=== PATIENT | male | born 1950 | race Caucasian/White ===

== ENCOUNTER 2018-05-30 19:21 | Emergency (ER) | payer OTHER ==
[~2018-05-30] VITALS: Ht 162.6 cm; Wt 62.1 kg
[2018-05-30 19:25] VITALS: BP_SYST 118
[2018-05-30] MEDS ORDERED: TRANEXAMIC ACID 1,000 MG/10 ML VIAL IV ONE ×2 (20:00→20:15)
[2018-05-30] MEDS ORDERED: LIDOCAINE/EPI 1% 1:100000 20 ML VIAL INJ ONE (20:00)
[2018-05-30 21:54] VITALS: BP_SYST 118
== END 2018-05-30 21:54 | disposition home or self-care (01) ==
LOC: SED 19:21
DX: K91.840 Postprocedural hemorrhage of a digestive system organ or structure following a digestive system procedure (principal); Z98.818 Other dental procedure status; Z86.79 Personal history of other diseases of the circulatory system
CPT/HCPCS: 99282; J3490